=== PATIENT | female | born 1990 | race American Indian/Alaskan Native ===

== ENCOUNTER 2017-11-05 12:53 | Emergency (ER) ==
[2017-11-05 12:59] VITALS: BP 128/78; TEMP 98.7; BMI 25.7
[2017-11-05] MEDS ORDERED: ZOFRAN 4 MG/2 ML IM STA (13:12)
[2017-11-05] MEDS ORDERED: ROCEPHIN IM STA (14:54)
[2017-11-05] MEDS ORDERED: LIDOCAINE HCL 1% SDV SUBCUT STA (14:54)
--- NOTE | 2017-11-05 14:54 | ED.PDOC ---
General ED Provider: Dr. DACIA BROWNE Chief Complaint: Nausea/Vomiting Stated Complaint: ABDOMINAL PAIN Time Seen by Physician: 13:00 (SEEN WITH BETHANIE ) Mode of Arrival: Walk-In Information Source: Patient Exam Limitations: No limitations Nursing and Triage Documentation Reviewed and Agree: Yes Reviewed sepsis parameters & appropriate labs ordered?: Yes System Inflammatory Response Syndrome: Not Applicable Sepsis Protocol: For patient's 13 years and over: Temp is 96.8 and below OR 101 and greater Pulse >90 BPM Resp >20/minute Acutely Altered Mental Status Are patient's symptoms suggestive of a new infection, such as: -Pneumonia -Skin, Soft Tissue -Endocarditis -UTI -Bone, Joint Infection -Implantable Device -Acute Abdominal Infection -Wound Infection -Meningitis -Blood Stream Catheter Infection -Unknown System Inflammatory Response Syndrome: Not Applicable GI Complaint Exam - Abdominal Pain Complaint/Exam Onset: Gradual Duration: 1 WEEK EPIGASTRIC SEEN AT [facility] FOR SAME ISSUE Symptoms Are: Still present Timing: Intermittent Initial Severity: Mild Current Severity: Mild Location of Pain: Epigastric Character: Reports: Cramping Aggravating: Reports: None Alleviating: Reports: None Associated Signs and Symptoms: Reports: Cough, Urinary frequency, Nausea. Denies: Diaphoresis, Fever, Chest pain, Dizziness, Back pain, Constipation, Blood in stool, Vaginal discharge, Vomiting, Diarrhea, Sore throat, Decreased activity AAA Risk Factors: Reports: None Cardiac Risk Factors: Reports: None Ectopic Risk Factors: Reports: None Ovarian Torsion Risk Factors: Reports: None Surgical Obstruction Risk Factors: Reports: None Related Surgical History: Reports: None Patient Rh Status: Unknown Abdominal Findings: Present: None Differential Diagnoses: Appendicitis, Bowel Obstruction, Constipation, Gastroenteritis, Pancreatitis Review of Systems - Review Of Systems Constitutional: Reports: Malaise Eyes: Reports: No symptoms Ears, Nose, Mouth, Throat: Reports: No symptoms Respiratory: Reports: No symptoms Cardiac: Reports: No symptoms GI: Reports: Abdominal pain, Nausea : Reports: Frequency Musculoskeletal: Reports: No symptoms Skin: Reports: No symptoms Neurological: Reports: No symptoms Endocrine: Reports: No symptoms Hematologic/Lymphatic: Reports: No symptoms All Other Systems: Reviewed and Negative Past Medical History - Past Medical History Previously Healthy: Yes Endocrine: Reports: None Cardiovascular: Reports: None Respiratory: Reports: None Hematological: Reports: None Gastrointestinal: Reports: None Genitourinary: Reports: None Neuro/Psych: Reports: None Musculoskeletal: Reports: None Cancer: Reports: None Last Menstrual Period: 1 week ago - Surgical History General Surgical History: Reports: Cholecystectomy - Family History Family History: Reports: None - Social History Smoking Status: Current every day smoker Hx Substance Use: No Alcohol Screening: Occasionally Physical Exam - Physical Exam Appearance: Well-appearing, No pain distress, Well-nourished Eyes: LISA, EOMI, Conjunctiva clear ENT: Ears normal, Nose normal, Oropharynx normal Respiratory: Airway patent, Breath sounds clear, Breath sounds equal, Respirations nonlabored Cardiovascular: RRR, Pulses normal, No rub, No murmur GI/: Soft, Nontender, No masses, Bowel sounds normal, No Organomegaly Musculoskeletal: Normal strength, ROM intact, No edema, No calf tenderness Skin: Warm, Dry, Normal color Neurological: Sensation intact, Motor intact, Reflexes intact, Cranial nerves intact, Alert, Oriented Psychiatric: Affect appropriate, Mood appropriate Critical Care Note - Critical Care Note Total Time (mins): 0 Course - Course Hematology/Chemistry: 11/05/17 13:20 11/05/17 13:20 Orders, Labs, Meds: Lab Review 11/05/17 11/05/17 11/05/17 13:20 13:20 13:20 WBC 14.62 H RBC 4.71 Hgb 15.3 Hct 43.2 MCV 91.7 MCH 32.5 H MCHC 35.4 RDW Coeff of Sheryl 12.9 Plt Count 412 Immature Gran % (Auto) 0.4 Neut % (Auto) 63.8 Lymph % (Auto) 28.7 [place] % (Auto) 6.5 Eos % (Auto) 0.1 Baso % (Auto) 0.5 Immature Gran # (Auto) 0.1 Neut # 9.3 H Lymph # 4.2 H [place] # 1.0 Eos # 0.0 Baso # 0.1 Sodium 139 Potassium 3.3 L Chloride 103 Carbon Dioxide 23 Anion Gap 16.3 BUN 11 Creatinine 0.75 Estimated GFR (MDRD) 93.00 BUN/Creatinine Ratio 14.66 Glucose 91 Calcium 9.5 Total Bilirubin 0.9 AST 28 ALT 44 Alkaline Phosphatase 90 Total Protein 8.0 Albumin 4.1 Globulin 3.9 Albumin/Globulin Ratio 1.05 Serum , Qual Negative Urine Color Urine Clarity Urine pH Ur Specific [place] Urine Protein Urine Glucose (UA) Urine Ketones Urine Blood Urine Nitrite Urine Bilirubin Urine Urobilinogen Ur Leukocyte Esterase Urine Microscopic RBC Urine Microscopic WBC Ur Squamous Epith Cells Amorphous Sediment Urine Bacteria Urine Mucus Influenza A (Rapid) Influenza B (Rapid) 11/05/17 11/05/17 13:40 13:40 WBC RBC Hgb Hct MCV MCH MCHC RDW Coeff of Sheryl Plt Count Immature Gran % (Auto) Neut % (Auto) Lymph % (Auto) [place] % (Auto) Eos % (Auto) Baso % (Auto) Immature Gran # (Auto) Neut # Lymph # [place] # Eos # Baso # Sodium Potassium Chloride Carbon Dioxide Anion Gap BUN Creatinine Estimated GFR (MDRD) BUN/Creatinine Ratio Glucose Calcium Total Bilirubin AST ALT Alkaline Phosphatase Total Protein Albumin Globulin Albumin/Globulin Ratio Serum , Qual Urine Color Dark Urine Clarity Slightly Urine pH 6.5 Ur Specific [place] 1.025 Urine Protein 1+ Urine Glucose (UA) Negative Urine Ketones 4+ Urine Blood 3+ Urine Nitrite Negative Urine Bilirubin 2+ Urine Urobilinogen 1.0 Ur Leukocyte Esterase 1+ Urine Microscopic RBC 10-20 Urine Microscopic WBC 5-10 Ur Squamous Epith Cells 2-5 Amorphous Sediment 3+ Urine Bacteria 1+ Urine Mucus 3+ Influenza A (Rapid) Negative by naat Influenza B (Rapid) Negative by naat Orders Category Date Time Status EKG-(ED ONLY) Stat CARDIO 11/05/17 14:38 Stop Req ED ADULT EDUCATION PROFESSIONAL APPLIED ONCE EMERGENCY 11/05/17 14:38 Inactive ACETAMINOPHEN Stat LAB 11/05/17 14:38 Stop Req BLOOD ALCOHOL Stat LAB 11/05/17 14:38 Stop Req CBC W/ AUTO DIFF Stat LAB 11/05/17 13:20 Completed CBC W/ AUTO DIFF Stat LAB 11/05/17 14:38 Stop Req COMPREHENSIVE METABOLIC PANEL Stat LAB 11/05/17 13:20 Completed COMPREHENSIVE METABOLIC PANEL Stat LAB 11/05/17 14:38 Stop Req DRUG SCREEN, URINE, RAPID Stat LAB 11/05/17 14:38 Stop Req FLU A/B MOLECULAR Stat LAB 11/05/17 13:40 Completed MOLECULAR GROUP A STREP Stat LAB 11/05/17 13:40 Completed SALICYLATE Stat LAB 11/05/17 14:38 Stop Req SERUM Stat LAB 11/05/17 13:20 Completed URINALYSIS C & S IF INDICATED Stat LAB 11/05/17 13:40 Completed URINE CULTURE Routine LAB 11/05/17 13:40 Stop Req Ceftriaxone Sodium [Rocephin] MEDS 11/05/17 14:54 Discontinued 1 gm IM ONCE STA Lidocaine HCl/Pf [Lidocaine HCl 1% Sdv] MEDS 11/05/17 14:54 Discontinued 5 ml SUBCUT ONCE STA Ondansetron HCl/Pf [Zofran 4 mg/2 ml] MEDS 11/05/17 13:12 Discontinued 4 mg IM ONCE STA CT ABDOMEN/PELVIS WO CONTRAST Stat RADS 11/05/17 13:11 Taken Medications Discontinued Medications Generic Name Dose Route Start Last Admin Trade Name Hernandez PRN Reason Stop Dose Admin Ceftriaxone Sodium 1 gm 11/05/17 14:54 Rocephin IM 11/05/17 14:55 ONCE STA Lidocaine HCl 5 ml 11/05/17 14:54 Lidocaine Hcl 1% Sdv SUBCUT 11/05/17 14:55 ONCE STA Ondansetron HCl 4 mg 11/05/17 13:12 11/05/17 13:36 Zofran 4 Mg/2 Ml IM 11/05/17 13:13 4 mg ONCE STA Administration Vital Signs: Temp Pulse Resp BP Pulse Ox 11/05/17 12:53 98.7 F 98 H 16 128/78 100 Departure - Departure Time of Disposition: 16:00 Disposition: HOME SELF-CARE Discharge Problem: Nausea UTI (urinary tract infection) Qualifiers: Urinary tract infection type: site unspecified Hematuria presence: without hematuria Qualified Code(s): N39.0 - Urinary tract infection, site not specified Abdominal pain Qualifiers: Abdominal location: generalized Qualified Code(s): R10.84 - Generalized abdominal pain Instructions: Abdominal Pain (ED) Condition: Good Pt referred to PMD for follow-up: Yes IPMP verified?: Yes Prescriptions: Sulfamethoxazole/Trimethoprim [Bactrim Ds Tablet] 1 each PO BID #10 tablet Allergies/Adverse Reactions: Allergies Sulfa (Sulfonamide Antibiotics) Adverse Reaction (Verified 11/05/17 12:59) Home Medications: Ambulatory Orders Ondansetron HCl [Zofran] 4 mg PO Q8H 11/05/17 Promethazine HCl 25 mg PO Q6H 11/05/17 Sulfamethoxazole/Trimethoprim [Bactrim Ds Tablet] 1 each PO BID #10 tablet 11/05 Disposition Discussed With: Patient
--- NOTE | 2017-11-05 15:02 | CT ---
EXAM: CT abdomen pelvis without contrast HISTORY: Epigastric pain which has been present for several days with nausea and vomiting COMPARISON: None TECHNIQUE: Serial axial images of the abdomen pelvis were performed from the lung bases through the inferior pelvis without contrast. These were viewed in multiple planes. FINDINGS: The lung bases are clear. Evaluation is limited due to lack of contrast. The liver is unremarkable. The gallbladder has been removed. Adrenal glands are normal. The kidneys are unremarkable. The spleen is unremarkable. The pancreas is normal. The stomach is mildly distended. Small bowel in the abdomen and pelvis is normal. The colon is unremarkable. The appendix is normal. There is a fat-containing umbilical hernia. There is no free air, free fluid or lymphadenopathy. There are few scattered nonpathologically enlarged mesenteric lymph nodes. The uterus is unremarkabl e. The urinary bladder is normal. There is no free air or free fluid. The osseous structures are u nremarkable. IMPRESSION: 1. No acute intra-abdominal or pelvic process to account for patient's symptoms. Few scattered lymp h nodes which are nonpathologically enlarged may be reactive versus mesenteric adenitis. 2. The appendix is normal. 3. Fat containing umbilical hernia.
== END 2017-11-05 15:59 | disposition home or self-care (01) ==
LOC: ED 12:53
DX: N39.0 Urinary tract infection, site not specified (principal); R10.84 Generalized abdominal pain; F17.210 Nicotine dependence, cigarettes, uncomplicated
CPT/HCPCS: 36415; 80053; 81001; 84703; 85025; 87086; 87502; 87651; 96372; 99283